=== PATIENT | female | born 1985 | race Caucasian/White ===

== ENCOUNTER 2016-05-29 16:32 | Observation (INO) | payer OTHER ==
--- NOTE | 2016-05-29 22:54 | HP ---
HISTORY: This patient is a 30-year-old, 1, para 0 patient, who is followed by Dr. Damon. She is known to have a past history of a low-lying posterior placenta that was diagnosed on April 28. She did have an episode of vaginal bleeding this afternoon, where the bright red blood was accumulating in the toilet bowl and was definitely bright red blood and frightening to the patient. She is unable to quantify this as to whether it might have been a half of a cup or a cup of blood. Then she had a second episode also a little bit later in the afternoon of similar bright red bleeding. She denies any abdominal pain or cramping or uterine contractions. heart tones are present currently. She would be at approximately 17 weeks 1 day gestation by her dates and 1 of her EDDs was 11/05/2016. She also would be at 17 weeks 4 days gestation based on earlier ultrasound close to April 28. Lily's OB ultrasound at the bedside does show 18 weeks' gestation. The placenta is posteriorly and somewhat low and is at least 5.6 cm from the internal cervical os. There is no retroplacental collection of blood seen at this time. viability is present. heart tones are in the 148 range. Her bleeding at the present time seems to have stopped. She also states that she did have some vaginal bleeding back in March, which was usually in the form of spotting and then she did have some bleeding close to April 28 also. She has gone the last several weeks without any vaginal bleeding. Her blood type is known to be B positive. Please see the EHR as it pertains to all of her laboratory data, which is essentially quite negative. PAST MEDICAL HISTORY: Denies any knowledge of heart, lung, liver, or kidney disease. MEDICATIONS: At present consist of vitamins. ALLERGIES: There are no known allergies. PAST SURGICAL HISTORY: Consists of a LEEP procedure [place] [address] Damon and she does have a past history of LAZARO III, subsequent Pap smears had been normal after the LEEP. FAMILY HISTORY: One grandmother had diabetes and one grandmother had lung cancer. The patient's mother has had colon cancer, but is alive and well at present. 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 She lives in [place] with her . He works in construction. She is a nonsmoker and does not use alcohol during the . PHYSICAL EXAMINATION: HEENT: Negative. VITAL SIGNS: Blood pressure is 134/82, temperature 98.4, pulse is 86 and regular. LUNGS: Clear to A. HEART: Regular rhythm without murmur. ABDOMEN: Soft, and nontender and gentle palpation over the uterus also reveals the uterus to be nontender at present. There is negative CVA tenderness. PELVIC: Exam is not done, but inspection of the vulvar area reveals no trickling or oozing of blood at the present time and her Chux pad is dry. EXTREMITIES: Negative. NEUROLOGIC: Grossly intact. IMPRESSION: Recent 2 episodes of vaginal bleeding this afternoon when she was at home in [place]. She has not done any unusual activity recently, and she has been avoiding intercourse and strenuous physical activity or heavy lifting. She has had essentially pelvic rest. She appears to be stable at the present time, but since she lives 1 hour from the hospital and since this is definitely a high- risk , we will keep her for observation lily. If she remains stable, and has an uneventful evening, we would cautiously permit her to go home tomorrow with very thorough and careful follow up instructions. We will obtain baseline CBC at the present time. Please see admission orders. We will discuss her with Dr. Damon when he is back. The patient's current gestational age based on lily's ultrasound reveals 18 weeks' gestation as mentioned above. [facility] /[id number]
[2016-05-30 07:19] VITALS: BP 115/68
--- NOTE | 2016-05-31 02:48 | DISCH ---
She was admitted for observation, yesterday on 05/29/2016. HISTORY: Please see my observation history and physical on this patient from yesterday, 05/29/2016. She was admitted for observation because of some significant vaginal bleeding that she had at home in the afternoon yesterday. We did see her at the hospital and admitted her at about 5:00 p.m. yesterday afternoon. She is approximately 17 weeks 4 days gestation or 18 weeks' gestation by yesterday's ultrasound with history of low-lying placenta. Her vaginal bleeding did subside late yesterday afternoon. She has not gone into labor and has no uterine contractions or activity. She denies any abdominal pain or cramping. Please see the ultrasound report of late yesterday afternoon placing her at 18 weeks' gestation with the posterior low-lying placenta now being about 5.6 cm from the internal os. No retroplacental hematoma or other large collections of blood was seen in the intrauterine cavity. Her hemoglobin yesterday on admission was 12.0. She has had a very stable night. We will permit her to go home this morning. DISCHARGE DIAGNOSIS: Recent vaginal bleeding with low-lying posterior placenta at 18 weeks' gestation. DISCHARGE INSTRUCTIONS: Consisted of having pelvic rest at home and avoiding heavy lifting, strenuous physical activity or intercourse. She was also instructed to avoid any prolonged walking, although she can do careful ambulating around her home, and possibly Dr. 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 She was instructed to keep us very closely informed on the phone, and either call or return to the hospital if there was further bleeding. She also would call us if any fever, labor, or any bothersome symptoms or any questions whatsoever. She assures me that she will keep us very closely informed on the telephone. Her blood type is B positive. Her condition on discharge is stable. She will continue with regular diet. Discharge medications none, but she will continue her vitamins that she has at home. She does have an upcoming appointment to see Dr. Damon in the clinic on June 16, and I have also asked her to please call Dr. Damon or Dr. Damon's nurse early this coming week for a progress report. Dr. Damon is currently out of town. I have also thoroughly explained to her who is on-call coverage over this coming weekend if she has any questions or problems also. [facility] /[id number]
== END 2016-05-30 09:06 | disposition home or self-care (01) ==
LOC: DL.OBCHECK 16:32 → DL.MS 17:40 → EDUNIT# 17:40 → UNDOADMOB 17:40 → DL.MS 17:47 → UNDODISOB 05-30 09:06
PROVIDERS: ADMIT Obstetrics & Gynecology; ATTEND Obstetrics & Gynecology
DX: O44.52 Low lying placenta with hemorrhage, second trimester (principal); O46.92 Antepartum hemorrhage, unspecified, second trimester; Z79.899 Other long term (current) drug therapy; Z98.890 Other specified postprocedural states; Z3A.18 18 weeks gestation of pregnancy
CPT/HCPCS: 36415; 76815; 85027; G0378

== ENCOUNTER 2016-10-25 11:46 | Inpatient (IN) | payer OTHER ==
[2016-10-25] MEDS ORDERED: Lidocaine 1% 30 ML SDV INJECT PRN (13:25)
[2016-10-25] MEDS ORDERED: Carboprost Tromethamine 250 MCG/1 ML Amp IM PRN ×2 (13:25→17:32)
[2016-10-25] MEDS ORDERED: Methylergonovine 0.2 MG/1 ML Amp IM PRN (13:25)
[2016-10-25] MEDS ORDERED: Ondansetron 4 MG/2 ML SDV IV PRN (13:25)
[2016-10-25] MEDS ORDERED: Acetaminophen 325 MG Tab PO PRN ×2 (13:25→17:32)
[2016-10-25] MEDS ORDERED: Sodium Chloride 0.9% 10 ML Syringe FLUSH PRN ×2 (13:25→17:32)
[2016-10-25] MEDS ORDERED: Lactated Ringers 500 ML IV ONE (13:25)
[2016-10-25] MEDS ORDERED: Misoprostol 400 MCG (4 X 100 MCG TAB) RECTAL PRN ×2 (13:25→17:32)
[2016-10-25] MEDS ORDERED: Lactated Ringers 1,000 ML IV SCH ×2 (13:30→13:40)
[2016-10-25] MEDS ORDERED: fentaNYL 100 MCG/2 ML SDV ITHECAL ONE (14:11)
[2016-10-25] MEDS ORDERED: fentaNYL 100 MCG/2 ML SDV ONE (14:11)
[2016-10-25] MEDS ORDERED: Oxytocin/Normal Saline 30 UNIT/500 ML BAG IV SCH (17:26)
[2016-10-25] MEDS ORDERED: Oxytocin 10 Units/1 ML SDV IM PRN (17:32)
[2016-10-25] MEDS ORDERED: Simethicone 80 MG Tab.Chew PO PRN (17:32)
[2016-10-25] MEDS ORDERED: Zolpidem 5 MG Tab PO PRN (17:32)
[2016-10-25] MEDS ORDERED: Benzocaine/Menthol 20%-0.5% Spray 56 GM Canister TOP PRN (17:32)
[2016-10-25] MEDS: Ibuprofen 800 MG Tab PO PRN (21:10)
[2016-10-25] MEDS: Docusate Sodium 100 MG Cap PO PRN (21:10)
--- NOTE | 2016-10-26 00:41 | HP ---
HISTORY OF PRESENT ILLNESS: The patient is a 31-year-old, G1, at 38 weeks and 3 days. The is complicated by A1 gestational diabetes and a 2-vessel cord. The patient presents today with worsening contractions. No loss of fluid. No vaginal bleeding. Good movement. OB HISTORY: She is a G1. COMM[employer]OCI[employer] HISTORY: She did have a history of a LEEP procedure. No STDs. PAST MEDICAL HISTORY: Negative. PAST SURGICAL HISTORY: Just the LEEP. ALLERGIES: The patient has no known drug allergies. LABORATORY DATA: The patient's blood type is B positive. Antibody negative. GC/chlamydia negative. GBS negative. The patient's rubella, syphilis, hepatitis B, and HIV could not be found. Therefore, they have been reordered. The patient did have an ultrasound on 06/16/2016, which was consistent with dates and within normal limits except for the 2-vessel cord. Her last interval growth scan was normal. PHYSICAL EXAMINATION: General: The patient is afebrile. Vital Signs: Blood pressure 135/92 to 125/79. is reactive, reassuring. She does have irregular contractions. Due to the first elevated blood pressure, [facility] were sent. White blood cell count was 15.8, hemoglobin 13.5, platelets 190. Uric acid was 4.6, AST 24, ALT 16. LDH 130, BUN 13. Protein:creatinine ratio was 0:1. Due to the gestational diabetes, blood glucose was checked, it was 85. The patient did arrive on Labor and Delivery at 2 cm and within an hour, progressed to 7 cm, 100% effaced, and +1 with a bulging bag and cephalic. ASSESSMENT AND PLAN: IUP at term with gestational diabetes, in active labor. I did go ahead and order the remainder of her labs, expect vaginal delivery and she will likely get her intrathecal now, and we will continue Accu-Cheks while in labor. [facility] /[id number] JAZMÍN
[2016-10-26] MEDS: Docusate Sodium 100 MG Cap PO PRN ×2 (09:20→19:25)
[2016-10-26] MEDS: Prenatal Multivitamin with Calcium/Folic Acid/Iron Tab PO SCH (09:20)
[2016-10-26] MEDS: Ibuprofen 800 MG Tab PO PRN ×2 (09:21→19:24)
--- NOTE | 2016-10-26 14:18 | PN ---
DATE: 10/26/2016 SUBJECTIVE: The patient is postop day #1, status post vacuum-assisted vaginal delivery with gestational diabetes, and resolving gestational hypertension. The patient has no complaints. States lochia is minimal. The baby is doing well. PHYSICAL EXAMINATION: Vital Signs: The patient is afebrile, heart rate 85 to 102, blood pressure 114 to 165 over 58 to 91. Last blood pressure was 114/58, respiratory rate 18, O2 sat 99%. The patient B positive. Abdomen: The patient's fundus is firm below the umbilicus. Extremities: No edema or tenderness lower extremities. LABORATORY DATA: The patient's pre-delivery CBC, white count 15.8, hemoglobin 13.5, and platelets of 190. Post-delivery CBC, white blood cell count 17.9, hemoglobin 11.8, platelets 184. ASSESSMENT AND PLAN: day #1, status post vacuum-assisted vaginal delivery with gestational diabetes and resolving gestational hypertension. Mom and baby are both doing well. We will continue care and likely discharge tomorrow. [facility] /[id number] JAZMÍN
--- NOTE | 2016-10-27 05:41 | DEL ---
DATE: 10/25/2016 PREDELIVERY DIAGNOSIS: Intrauterine , at term with gestational diabetes and gestational hypertension. Admitted in active labor. PROCEDURE: Vacuum-assisted vaginal delivery. FINDINGS: There was a viable infant. scores 8 and 9. Baby weighed 2755 g. There was a second-degree midline laceration, was repaired. Placenta was delivered intact. ESTIMATED BLOOD LOSS: Normal for vaginal delivery. PROCEDURE IN DETAIL: The patient was admitted in active labor. She did push well over 2 hours. Then, she did become exhausted, and she did consent to vacuum-assisted vaginal delivery. The vacuum was applied to the infant's head with the mother pushing. The infant's head was delivered with 1 attempt with no pop offs with the vacuum. The shoulder was delivered with gentle traction. The was placed on the mother's abdomen and the cord was allowed to stop pulsating. Cord was cut and clamped. The cord blood was collected. The baby was doing well. scores were 8 and 9. Baby weighed 2755 g. The second- degree midline laceration was then injected with lidocaine and repaired with a 3- 0 Vicryl in usual fashion. The placenta was then delivered with some gentle traction and uterine massage. Placenta was delivered intact, and after uterine massage and 3rd stage Pitocin, there was normal blood loss for vaginal delivery. At the end of the procedure, mom and baby were both doing well. Glucose prior to the delivery was 85. [facility] /[id number]
[2016-10-27 07:32] VITALS: BP 114/60
[2016-10-27] MEDS: Docusate Sodium 100 MG Cap PO PRN (07:46)
[2016-10-27] MEDS: Ibuprofen 800 MG Tab PO PRN (07:46)
[2016-10-27] MEDS: Prenatal Multivitamin with Calcium/Folic Acid/Iron Tab PO SCH ×2 (07:47→12:38)
--- NOTE | 2016-10-27 09:12 | PCM.PRNOTE ---
- Free Text/Narrative Note: 25 Oct 2016 1410 hours I was requested to provide labor analgesia for this patient. I reviewed her history and current vital signs and status. Her VSS and fetus condition reassuring. I reviewed risks v. benefits and expected outcomes of ITN and obtained written and verbal informed consent from her. I performed the ITN in the labor room with the assistance of the OB RN. I utilized sterile technique including hat, mask and gloves. Patient was positioned sitting slumped, prepped with povidone and iodine, draped and skin allowed to dry. I utilized lidocaine in the skin and ligament of L3/4 interspace and then placed a 25ga. Pencan needle to obtain CSF on the first try. I then injected Fentanyl 25ug and Marcaine/Dextrose 3mg into the intrathecal space. Within 3 minutes the patient experienced relief of pain and both legs got guillermo and warm. VSS and signed remained reassuring before , during and after the ITN injection. She is a P.S. 1 class with SVETADA.
--- NOTE | 2016-10-27 09:19 | PCM.DCSUM1 ---
<Jake Josue - Last Filed: 10/27/16 09:37> Discharge Summary - Hospital Course Free Text/Narrative:: ADMITTING DIAGNOSES: 1. 1 para 0 2. A 38wk3d based on 10wk U/S 3. Diet controlled GDM 4. Blood type B pos, GBS Neg, Rubella probable 5. Baby did have single umbilical artery 6. History of LEEP DISCHARGE DIAGNOSES: 1. 1 para 1001 2. A 38wk3d based on 10wk U/S 3. Diet controlled GDM 4. Blood type B pos, GBS Neg, Rubella probable 5. Baby did have single umbilical artery 6. History of LEEP 7. Status post vacuum assisted vaginal delivery. Brief History: Patient presented to the L and D dept in labor. The patient delievered day of admission with use of vacuum and 2nd degree repair. Baby had apgars 8 and 9. HOSPITAL COURSE: Mom has been doing well since delievery. She has been able to manage pain with minimal medications. This is able to ambulate and tolarate a regular diet. She is able to void and pass flatus. The baby is breast feeding and no specific complications have arisen. Mom was concerned about glucose levels of baby, was educated and told to call or go to ER if any concerns. All questions answered. - Discharge Data Discharge Date: 10/27/16 Discharge Disposition: Home, Self-Care 01 Condition: Good - Patient Instructions Diet: Usual Diet as Tolerated Activity: No Lifting Over 25 Pounds, No Strenuous Activities (Pelvic rest for 6 weeks. ) Driving: Do Not Drive Showering/Bathing: May Shower Notify Provider of: Fever, Increased Pain, Swelling and Redness, Drainage, Nausea and/or Vomiting Other/Special Instructions: Routine post vaginal delivery instructions. - Discharge Plan Prescriptions/Med Rec: Docusate Sodium [Colace] 100 mg PO BID PRN #30 cap PRN Reason: Constipation Ferrous Sulfate [Iron] 1 tab PO BID #60 tablet Ibuprofen [IJD: Ibuprofen] 600 mg PO Q6H PRN #30 tablet PRN Reason: Pain Home Medications: Home Meds Vit with Ca/FA/Iron [ Plus Iron] 1 tab PO DAILY 05/29/16 [ History] Acetaminophen [Tylenol] 650 mg PO Q6H PRN tablet 10/27/16 [Rx] Docusate Sodium [Colace] 100 mg PO BID PRN #30 cap 10/27/16 [Rx] Ferrous Sulfate [Iron] 1 tab PO BID #60 tablet 10/27/16 [Rx] Ibuprofen [IJD: Ibuprofen] 600 mg PO Q6H PRN #30 tablet 10/27/16 [Rx] Referrals: Vasyl Damon MD [Primary Care Provider] - (Please make 6 week appointment. ) - Discharge Summary/Plan Comment Discharge Summary/Plan Comment: Discharge home with baby after vacuum assisted vaginal delivery. - General Info Date of Service: 10/27/16 Functional Status: Reports: Pain Controlled - Review of Systems General: Reports: No Symptoms HEENT: Reports: Glasses Pulmonary: Reports: No Symptoms Cardiovascular: Reports: No Symptoms Gastrointestinal: Reports: No Symptoms Genitourinary: Reports: No Symptoms Musculoskeletal: Reports: No Symptoms Skin: Reports: No Symptoms Neurological: Reports: No Symptoms Psychiatric: Reports: No Symptoms - Patient Data Vitals - Most Recent: Last Vital Signs Temp 99.2 F 10/27/16 07:32 Pulse 83 10/27/16 07:32 Resp 16 10/27/16 07:32 BP 114/60 10/27/16 07:32 Pulse Ox 100 10/27/16 07:32 Weight - Most Recent: 78.018 kg Med Orders - Current: Current Medications Acetaminophen (Tylenol) 650 mg PO Q6H PRN PRN Reason: mild pain or fever Last Admin: 10/26/16 04:16 Dose: 650 mg Benzocaine/Menthol (Dermoplast Pain Relief [place]) 0 gm TOP Q4H PRN PRN Reason: Perineal comfort measures Last Admin: 10/25/16 21:10 Dose: 1 spray Carboprost Tromethamine (Hemabate Ds) 250 mcg IM ASDIRECTED PRN PRN Reason: Excessive vaginal bleeding Docusate Sodium (Colace) 100 mg PO BID PRN PRN Reason: Constipation Last Admin: 10/27/16 07:46 Dose: 100 mg Lactated Ringer's (Ringers, Lactated) 1,000 mls @ 125 mls/hr IV ASDIRECTED HASMUKH Last Admin: 10/25/16 13:40 Dose: 125 mls/hr Oxytocin/Sodium Chloride (Pitocin In Ns 30 Unit/500 Ml) 30 unit in 500 mls @ 500 mls/hr IV TITRATE HASMUKH; 500 MUNITS/MIN PRN Reason: Protocol Last Titration: 10/25/16 20:35 Dose: Infused Lactated Ringer's (Ringers, Lactated) 1,000 mls @ 125 mls/hr IV ASDIRECTED HASMUKH Last Admin: 10/25/16 14:09 Dose: 125 mls/hr Ibuprofen (Motrin) 800 mg PO Q8H PRN PRN Reason: Mild Pain or Fever Last Admin: 10/27/16 07:46 Dose: 800 mg Lidocaine HCl (Xylocaine-Mpf 1%) 10 ml INJECT ASDIRECTED PRN PRN Reason: Perineal Repair Last Admin: 10/25/16 17:24 Dose: 10 ml Methylergonovine Maleate (Methergine) 0.2 mg IM ASDIRECTED PRN PRN Reason: Hemorrhage Misoprostol (Cytotec) 800 mcg RECTAL ONETIME PRN PRN Reason: Hemorrhage Ondansetron HCl (Zofran) 4 mg IV Q4H PRN PRN Reason: Nausea/Vomiting Oxytocin (Pitocin) 10 unit IM ONETIME PRN PRN Reason: Bleeding Prenat Multivit/Smeller/Iron/Folic Ac ( Plus Iron) 1 each PO DAILY HASMUKH Last Admin: 10/27/16 07:47 Dose: 1 each Simethicone (Simethicone) 80 mg PO Q4H PRN PRN Reason: Gas Sodium Chloride (Saline Flush) 10 ml FLUSH ASDIRECTED PRN PRN Reason: Keep Vein Open Zolpidem Tartrate (Ambien) 5 mg PO BEDTIME PRN PRN Reason: Insomnia Discontinued Medications Acetaminophen (Tylenol) 650 mg PO Q4H PRN PRN Reason: Pain (Mild 1-3) and fever Carboprost Tromethamine (Hemabate Ds) 250 mcg IM ASDIRECTED PRN PRN Reason: HEMORRHAGE Fentanyl (Sublimaze) Confirm Administered Dose 100 mcg .ROUTE .STK-MED ONE Stop: 10/25/16 14:12 Last Admin: 10/26/16 09:21 Dose: Not Given Lactated Ringer's (Ringers, Lactated) 500 mls @ 999 mls/hr IV .BOLUS ONE Stop: 10/25/16 13:55 Last Admin: 10/25/16 17:00 Dose: 125 mls/hr Misoprostol (Cytotec) 800 mcg RECTAL ASDIRECTED PRN PRN Reason: Hemorrhage Sodium Chloride (Saline Flush) 10 ml FLUSH ASDIRECTED PRN PRN Reason: Keep Vein Open - Exam General: Reports: Alert, Oriented HEENT: Reports: Pupils Reactive, Mucous Membr. Moist/[place]iel Neck: Reports: Trachea Midline Lungs: Reports: Clear to Auscultation, Normal Respiratory Effort Cardiovascular: Reports: Regular Rate, Regular Rhythm GI/Abdominal Exam: Normal Bowel Sounds, Soft, Other (Uterus firm and below umbilicus ) Back Exam: Reports: Full Range of Motion Extremities: Normal Range of Motion, Non-Tender, Pedal Edema (minimal) Skin: Reports: Warm, Dry, Intact Neurological: Reports: No New Focal Deficit Psy/Mental Status: Reports: Alert, Normal Affect, Normal Mood *Q Meaningful Use (DIS) - VTE *Q VTE Criteria *Q: - Stroke *Q Stroke Criteria *Q: - AMI *Q AMI Criteria *Q: <Windy See - Last Filed: 10/27/16 19:43> Discharge Summary - Discharge Summary/Plan Comment Discharge Summary/Plan Comment: Patient seen and examined with BON Farsnworth. Agree with his note as scribed on my behalf. -carpenter labor supervisor 10/27/161942 - Patient Data Vitals - Most Recent: Last Vital Signs Temp 99.2 F 10/27/16 07:32 Pulse 83 10/27/16 07:32 Resp 16 10/27/16 07:32 BP 114/60 10/27/16 07:32 Pulse Ox 100 10/27/16 07:32 Med Orders - Current: Current Medications Discontinued Medications Acetaminophen (Tylenol) 650 mg PO Q4H PRN PRN Reason: Pain (Mild 1-3) and fever Acetaminophen (Tylenol) 650 mg PO Q6H PRN PRN Reason: mild pain or fever Last Admin: 10/26/16 04:16 Dose: 650 mg Benzocaine/Menthol (Dermoplast Pain Relief [place]) 0 gm TOP Q4H PRN PRN Reason: Perineal comfort measures Last Admin: 10/25/16 21:10 Dose: 1 spray Carboprost Tromethamine (Hemabate Ds) 250 mcg IM ASDIRECTED PRN PRN Reason: HEMORRHAGE Carboprost Tromethamine (Hemabate Ds) 250 mcg IM ASDIRECTED PRN PRN Reason: Excessive vaginal bleeding Docusate Sodium (Colace) 100 mg PO BID PRN PRN Reason: Constipation Last Admin: 10/27/16 07:46 Dose: 100 mg Fentanyl (Sublimaze) Confirm Administered Dose 100 mcg .ROUTE .STK-MED ONE Stop: 10/25/16 14:12 Last Admin: 10/26/16 09:21 Dose: Not Given Fentanyl (Sublimaze) 25 mcg ITHECAL .STK-MED ONE Stop: 10/25/16 14:12 Lactated Ringer's (Ringers, Lactated) 500 mls @ 999 mls/hr IV .BOLUS ONE Stop: 10/25/16 13:55 Last Admin: 10/25/16 17:00 Dose: 125 mls/hr Lactated Ringer's (Ringers, Lactated) 1,000 mls @ 125 mls/hr IV ASDIRECTED HASMUKH Last Admin: 10/25/16 13:40 Dose: 125 mls/hr Oxytocin/Sodium Chloride (Pitocin In Ns 30 Unit/500 Ml) 30 unit in 500 mls @ 500 mls/hr IV TITRATE HASMUKH; 500 MUNITS/MIN PRN Reason: Protocol Last Titration: 10/25/16 20:35 Dose: Infused Lactated Ringer's (Ringers, Lactated) 1,000 mls @ 125 mls/hr IV ASDIRECTED HASMUKH Last Admin: 10/25/16 14:09 Dose: 125 mls/hr Ibuprofen (Motrin) 800 mg PO Q8H PRN PRN Reason: Mild Pain or Fever Last Admin: 10/27/16 07:46 Dose: 800 mg Lidocaine HCl (Xylocaine-Mpf 1%) 10 ml INJECT ASDIRECTED PRN PRN Reason: Perineal Repair Last Admin: 10/25/16 17:24 Dose: 10 ml Methylergonovine Maleate (Methergine) 0.2 mg IM ASDIRECTED PRN PRN Reason: Hemorrhage Misoprostol (Cytotec) 800 mcg RECTAL ASDIRECTED PRN PRN Reason: Hemorrhage Misoprostol (Cytotec) 800 mcg RECTAL ONETIME PRN PRN Reason: Hemorrhage Ondansetron HCl (Zofran) 4 mg IV Q4H PRN PRN Reason: Nausea/Vomiting Oxytocin (Pitocin) 10 unit IM ONETIME PRN PRN Reason: Bleeding Prenat Multivit/Racine/Iron/Folic Ac ( Plus Iron) 1 each PO DAILY HASMUKH Last Admin: 10/27/16 12:38 Dose: Not Given Simethicone (Simethicone) 80 mg PO Q4H PRN PRN Reason: Gas Sodium Chloride (Saline Flush) 10 ml FLUSH ASDIRECTED PRN PRN Reason: Keep Vein Open Sodium Chloride (Saline Flush) 10 ml FLUSH ASDIRECTED PRN PRN Reason: Keep Vein Open Zolpidem Tartrate (Ambien) 5 mg PO BEDTIME PRN PRN Reason: Insomnia *Q Meaningful Use (DIS) - VTE *Q VTE Criteria *Q: - Stroke *Q Stroke Criteria *Q: - AMI *Q AMI Criteria *Q:
== END 2016-10-27 12:15 | disposition home or self-care (01) | DRG 775 ==
LOC: DL.OBCHECK 11:46 → DL.MS 13:25 → DL.OB 13:25 → UNDOADMOB 13:25 → DL.MS 13:28 → UNDOADMOB 13:28 → OBSVTOIN 17:15 → DL.OB 17:15
PROVIDERS: ADMIT Obstetrics & Gynecology; ATTEND Obstetrics & Gynecology
PROC: 10D07Z6 Extraction of Products of Conception, Vacuum, Via Natural or Artificial Opening (ICD-10-PCS; principal; 2016-10-25)
PROC: 3E0R3CZ (ICD-10-PCS; 2016-10-25)
PROC: 0KQM0ZZ Repair Perineum Muscle, Open Approach (ICD-10-PCS; 2016-10-25)
PROC: 00HU33Z Insertion of Infusion Device into Spinal Canal, Percutaneous Approach (ICD-10-PCS; 2016-10-25)
PROC: 4A1HXFZ Monitoring of Products of Conception, Cardiac Rhythm, External Approach (ICD-10-PCS; 2016-10-25)
DX: O24.420 Gestational diabetes mellitus in childbirth, diet controlled (principal); O13.4 Gestational [pregnancy-induced] hypertension without significant proteinuria, complicating childbirth; O70.1 Second degree perineal laceration during delivery; Z37.0 Single live birth; Z3A.38 38 weeks gestation of pregnancy
CPT/HCPCS: 36415; 81001; 82570; 82962; 83615; 84156; 84450; 84460; 84520; 84550; 85025; 85027; 86592; 86703; 86762; 86803; 87340; A9270-GY; J2590; J3010; J7120

== ENCOUNTER 2021-05-20 15:01 | Inpatient (IN) | payer OTHER ==
[2021-05-20] MEDS ORDERED: Lactated Ringers 1,000 ML IV ONE (17:02)
[2021-05-20] MEDS ORDERED: Lidocaine 1% 30 ML SDV INJECT PRN (17:02)
[2021-05-20] MEDS ORDERED: Ondansetron 4 MG/2 ML SDV IVPUSH PRN (17:02)
[2021-05-20] MEDS ORDERED: Sodium Chloride 0.9% 10 ML Syringe FLUSH PRN (17:02)
[2021-05-20] MEDS ORDERED: Carboprost Tromethamine 250 MCG/1 ML Amp IM PRN (17:02)
[2021-05-20] MEDS ORDERED: Tranexamic Acid 1,000 MG in Sodium Chloride 0.9% 100 ML IV PRN (17:02)
[2021-05-20] MEDS ORDERED: Acetaminophen 325 MG Tab PO PRN ×2 (17:02)
[2021-05-20] MEDS ORDERED: Methylergonovine 0.2 MG/1 ML Amp IM PRN (17:02)
[2021-05-20] MEDS ORDERED: Misoprostol 400 MCG (4 X 100 MCG TAB) RECTAL PRN (17:02)
[2021-05-20] MEDS ORDERED: Lactated Ringers 1,000 ML IV SCH (17:15)
[2021-05-20] MEDS ORDERED: Oxytocin/Normal Saline 30 UNIT/500 ML BAG IV SCH ×2 (17:15)
[2021-05-20] MEDS ORDERED: Nalbuphine 10 MG/1 ML Vial IM ONE (21:47)
[2021-05-20] MEDS: Sodium Chloride 0.9% 10 ML Syringe FLUSH SCH (21:48)
[2021-05-21] MEDS ORDERED: Oxytocin 10 Units/1 ML SDV IM PRN (00:25)
[2021-05-21] MEDS ORDERED: Simethicone 80 MG Tab.Chew PO PRN (00:25)
[2021-05-21] MEDS ORDERED: Benzocaine/Menthol 20%-0.5% Spray 78 GM Cannister TOP PRN (00:25)
[2021-05-21] MEDS ORDERED: Zolpidem 5 MG Tab PO PRN (00:25)
[2021-05-21] MEDS ORDERED: Sodium Chloride 0.9% 10 ML Syringe FLUSH PRN (00:25)
[2021-05-21] MEDS: Docusate Sodium 100 MG Cap PO PRN ×2 (08:17→21:46)
[2021-05-21] MEDS: Prenatal Multivitamin with Calcium/Folic Acid/Iron Tab PO SCH (08:17)
[2021-05-21] MEDS: Ibuprofen 800 MG Tab PO PRN ×2 (08:17→21:46)
[2021-05-21] MEDS: Sodium Chloride 0.9% 10 ML Syringe FLUSH SCH ×2 (08:18→21:59)
[2021-05-22] MEDS: Docusate Sodium 100 MG Cap PO PRN ×2 (08:50→21:15)
[2021-05-22] MEDS: Prenatal Multivitamin with Calcium/Folic Acid/Iron Tab PO SCH (08:50)
[2021-05-22] MEDS: Ibuprofen 800 MG Tab PO PRN ×2 (08:50→21:15)
[2021-05-23] MEDS: Prenatal Multivitamin with Calcium/Folic Acid/Iron Tab PO SCH (12:01)
[2021-05-23 12:11] VITALS: BP 138/89; PULSE 86
== END 2021-05-23 14:30 | disposition home or self-care (01) | DRG 806 ==
LOC: DL.OB 15:01 → UNDOADMIN 15:01 → DL.OB 05-22 11:50 → DL.MS 05-22 11:50 → DL.OB 05-22 16:51 → UNDODISIN 05-23 14:30
PROVIDERS: ADMIT Family Medicine; ATTEND Family Medicine
PROC: 10E0XZZ Delivery of Products of Conception, External Approach (ICD-10-PCS; principal; 2021-05-20)
PROC: 10907ZC Drainage of Amniotic Fluid, Therapeutic from Products of Conception, Via Natural or Artificial Opening (ICD-10-PCS; 2021-05-20)
DX: O13.4 Gestational [pregnancy-induced] hypertension without significant proteinuria, complicating childbirth (principal); D62 Acute posthemorrhagic anemia; Z37.0 Single live birth; Z3A.37 37 weeks gestation of pregnancy; O24.420 Gestational diabetes mellitus in childbirth, diet controlled; O99.02 Anemia complicating childbirth; O99.344 Other mental disorders complicating childbirth; F41.9 Anxiety disorder, unspecified; O70.0 First degree perineal laceration during delivery; Z20.822 Contact with and (suspected) exposure to COVID-19
CPT/HCPCS: 36415; 51701; 59409; 81003; 82565; 82570; 83615; 84156; 84450; 84460; 84520; 84550; 85027; A9270-GY; J2300; J2405; J2590; J7120; U0002